=== PATIENT | male | born 1965 | race American Indian/Alaskan Native ===

== ENCOUNTER 2020-05-09 01:10 | Emergency (ER) | payer MEDICAID ==
[2020-05-09] MEDS ORDERED: ASPIRIN 325 MG TAB PO ONE (01:44)
[2020-05-09] MEDS ORDERED: SODIUM CHLORIDE 0.9% 1000 ML 2,000 ML ONE (02:02)
[2020-05-09] MEDS ORDERED: SODIUM CHLORIDE 0.9% 1000 ML 1,000 ML IV ONE ×2 (02:14→02:18)
--- NOTE | 2020-05-09 02:14 | XRay Report ---
CHEST 1 VIEW 1:51 AM INDICATION / CLINICAL INFORMATION: Chest Pain. COMPARISON: None available. FINDINGS: SUPPORT DEVICES: None. HEART / MEDIASTINUM: There is a median sternotomy. The heart size and pulmonary vasculature are lexi l. The aorta is normal in caliber. LUNGS / PLEURA: No significant pulmonary or pleural abnormality. No pneumothorax. ADDITIONAL FINDINGS: A metallic screw overlies the proximal right humerus. IMPRESSION: No acute findings. Signer Name: Aniceto Bermudez MD Signed: 05/09/2020 2:10 AM Workstation Name: [id number]
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
[2020-05-09 02:34] LABS: Basophils % (Auto) 0.4 % (0.0-1.8); Eosinophils # (Auto) 0.1 K/mm3 (0.0-0.4); Eosinophils % (Auto) 0.7 % (0.0-4.3); Hematocrit 33.4 % (35.5-45.6); Hemoglobin 10.8 gm/dl (11.8-15.2); Lymphocytes # (Auto) 2.6 K/mm3 (1.2-5.4); Mean Corpuscular HGB Conc 32 % (32-34); Mean Corpuscular Volume 99 fl (84-94); Monocytes # (Auto) 0.6 K/mm3 (0.0-0.8); Monocytes % (Auto) 5.3 % (0.0-7.3); Platelet Count 262 K/mm3 (140-440); Red Blood Count 3.37 M/mm3 (3.65-5.03); Red Cell Distribution Width 15.1 % (13.2-15.2)
[2020-05-09 02:40] LABS: INR 1.18 (0.87-1.13)
[2020-05-09 02:41] LABS: Partial Thromboplastin Time 25.9 Sec. (24.2-36.6)
[2020-05-09 02:44] LABS: BUN/Creatinine Ratio 9; Blood Urea Nitrogen 25 mg/dL (9-20); Calcium 9.5 mg/dL (8.4-10.2); Hemolysis Index 4
[2020-05-09 02:58] LABS: Albumin 4.1 g/dL (3.9-5); Bilirubin,Direct 0.2 mg/dL (0-0.2)
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
[2020-05-09] MEDS ORDERED: SODIUM CHLORIDE 0.9% 500 ML 500 ML IV ONE ×2 (03:07→04:15)
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
[2020-05-09 03:27] VITALS: BP 93/54
== END 2020-05-09 05:10 | disposition other institution (70) ==
LOC: EDBD → ED 01:10
DX: S36.113A Laceration of liver, unspecified degree, initial encounter (principal); I95.9 Hypotension, unspecified; F10.129 Alcohol abuse with intoxication, unspecified; N28.9 Disorder of kidney and ureter, unspecified; E87.6 Hypokalemia; I11.0 Hypertensive heart disease with heart failure; I50.9 Heart failure, unspecified; Z98.890 Other specified postprocedural states; V49.49XA Driver injured in collision with other motor vehicles in traffic accident, initial encounter; W22.11XA Striking against or struck by driver side automobile airbag, initial encounter; Y93.89 Activity, other specified; Y92.410 Unspecified street and highway as the place of occurrence of the external cause; Y99.8 Other external cause status
CPT/HCPCS: 36415; 36430; 70450; 71045; 71260; 72125; 74177; 80048; 80076; 84484; 85025; 85610; 85730; 86850; 86900; 86901; 86920; 93005; 96360; 96361; 99285; J7030; J7040; P9016; Q9967; 80320; G0480